=== PATIENT | female | born 1985 | race Caucasian/White ===

== ENCOUNTER 2019-12-22 17:26 | Emergency (ER) | payer BC, SELFPAY ==
--- NOTE | ~2019-12-22 | XR_ITS ---
EXAMINATION: XR chest 2V DATE: 12/22/2019 19:11 INDICATION: Left chest pressure. TECHNIQUE: Frontal and lateral views of the chest were obtained. COMPARISON: Chest 2 views 04/15/2013 FINDINGS: The chest demonstrates clear lungs without pneumonia, pleural effusion, or pneumothorax. Th e heart size is normal. IMPRESSION: 1. No acute cardiopulmonary disease. Reviewed, dictated and finalized at location A.
--- NOTE | 2019-12-22 17:44 | ECG_ITS ---
Measurements Intervals [place] Rate: 64 P: 54 CO: 140 QRS: 56 QRSD: 85 T: 23 QT: 343 QTc: 356 Interpretive Statements SINUS RHYTHM DELAYED PRECORDIAL R/S TRANSITION BORDERLINE ECG Electronically Signed On 12-22-2019 20:20:25 CDT by Malik Sands D.O.
[2019-12-22 17:45] VITALS: BP 132/73; PULSE 72; RESP 18; TEMP 36.9; O2SAT 100
[2019-12-22 17:56] LABS: Basophils Absolute Auto 0.1 K/mm3 (0.0-0.1); Basophils Percent Auto 0.9 % (0.2-1.2); Eosinophils Absolute Auto 0.4 K/mm3 (0-0.3); Eosinophils Percent Auto 5.7 % (0-4.4); Hematocrit 48.4 % (37.0-47.0); Hemoglobin 16.5 g/dL (12.0-15.0); Immature Granulocyte Absolute 0.04 K/mm3 (0.00-0.031); Immature Granulocyte Percent A 0.6 % (0-0.5); Lymphocytes Absolute Auto 2.19 K/mm3 (0.9-3.2); Lymphocytes Percent Auto 32.8 % (18.3-44.2); Mean Corpuscular HGB Conc 34.1 g/dl (32-36); Mean Corpuscular Hemoglobin 32.2 pg (26-34); Mean Corpuscular Volume 94.5 fl (80-100); Mean Platelet Volume 9.8 fl (7.4-10.4); Monocytes Absolute Auto 0.4 K/mm3 (0.1-0.6); Monocytes Percent Auto 5.8 % (2.6-8.5); Neutrophils Absolute Auto 3.6 K/mm3 (1.3-6.7); Neutrophils Percent Auto 54.2 % (45.5-73.1); Platelet Count Result 242 k/mm3 (150-375); Red Blood Count 5.12 M/mm3 (4.2-5.4); Red Cell Distribution Width 12.2 % (11.5-14.5); White Blood Count 6.7 K/mm3 (4.5-10.0)
[2019-12-22 18:06] LABS: Prothrombin Time 12.8 Seconds (11.1-14.7)
[2019-12-22 18:07] LABS: Partial Thromboplastin Time 27.9 SECONDS (22.3-36.8)
[2019-12-22 18:08] LABS: Blood Urea Nitrogen 15 mg/dL (7-17); Calcium 9.3 mg/dL (8.4-10.2); Carbon Dioxide 28 mmol/L (22-30); Chloride 102 mmol/L (98-107); Estimated CRCL calculation 70 ml/min; Estimated Glomerular Filt Rate > 60; Glucose 107 mg/dL (65-105); Sodium 137 mmol/L (137-145)
[2019-12-22 18:20] LABS: Troponin I < 0.012 ng/mL (0.000-0.034)
[2019-12-22 20:24] VITALS: BP 115/82; PULSE 64; RESP 18; O2SAT 99
--- NOTE | 2019-12-22 21:16 | ED.CHESTPAIN ---
HPI - Chest Pain General Chief Complaint: Chest Pain Stated Complaint: chest pain Time Seen by Provider: 12/22/19 20:59 Source: patient Mode of arrival: ambulatory Limitations: no limitations History of Present Illness HPI narrative: This patient is a 34 year old female transitioning to male on Testosterone who presents for evaluation of chest tightness. He states he developed chest tightness 2 days ago . This tightness has been constant and he also feels pain in his left shoulder. He has been taking ibuprofen and aspirin for his pain . He states the medication helped his pain but not his chest tightness. He denies nausea, vomiting, fever, cough, or sob. He denies history of blood clots. MD complaint: chest pain Pain radiation: left arm Pain scale (0-10): 5 Quality: tightness Relieving factors: nothing Exacerbating factors: nothing Related Data Home Medications Medication Instructions Recorded Confirmed amitriptyline 12/22/19 testosterone cypionate mg 12/22/19 12/22/19 Allergies Allergy/AdvReac Type Severity Reaction Status Date / Time No Known Allergies Allergy Verified 12/22/19 21:07 Review of Systems Review of Systems: All systems reviewed & are unremarkable except as noted in HPI and below Constitutional: Constitutional: Denies chills, Denies fever(s) and Denies weakness ENT: Denies dizziness, Denies nasal congestion and Denies sore throat Cardiovascular: Cardiovascular: Reports chest pain and Reports radiating jaw, neck or arm pain Respiratory: Respiratory: Denies cough, Denies dyspnea and Denies wheezing Gastrointestinal: Gastrointestinal: Reports abdominal pain, Denies diarrhea, Denies nausea and Denies vomiting Musculoskeletal: Musculoskeletal: Denies back pain Neurologic: Denies dizziness, Denies headache(s) and Denies weakness PMFSH Past Medical History Medical History (Updated 12/23/19 @ 00:00 by Background Daemon) [id number] transgender person Migraine headache Surgical History Surgical History (Updated 12/22/19 @ 21:16 by Kelle Mauro MD) H/O mastectomy Social History Social History (Updated 12/22/19 @ 21:17 by Kelle Mauro MD) Smoking status: Current every day smoker Alcohol intake: current Alcohol use details: occasional Substance use: never Exam Narrative: Exam Narrative: GENERAL: Well-appearing, well-nourished, and in no acute distress. HEAD: Normocephalic, atraumatic EYES: PERRLA and EOMI, conjunctiva clear without discharge THROAT:Mucous membranes moist, Oropharynx normal without erythema, exudate, peritonsillar swelling or fluctuance NECK: Supple, without lymphadenopathy or mass RESPIRATORY: No respiratory distress, Airway patent, Respirations non-labored, Clear to auscultation without rales, rhonchi or wheeze HEART: Regular rate and rhythm. No murmur heard. Normal peripheral pulses. left chest wall tenderness ABDOMEN: Soft, epigastric tenderness, nondistended, normal active bowel sounds. No masses. No rebound or guarding, No organomegaly. EXTREMITIES: No edema, normal strength with full range of motion. SKIN: Warm, dry, normal color without rash NEURO: Alert and oriented x3. CN 2-12 grossly intact. No focal deficits. PSYCH: Normal mood and affect. Course Reevaluation(s) Reevaluation #1: Patient reports her pain is resolving after GI cocktail. I have discussed unremarkable evaluation. We will start medication for GERD and he will follow up with PCP. Date: 12/22/19 Time: 22:32 Vital Signs Vital signs: Vital Signs Temperature 98.5 F 12/22/19 17:45 Pulse Rate 72 12/22/19 17:45 Respiratory Rate 18 12/22/19 17:45 Blood Pressure 132/73 12/22/19 17:45 Pulse Oximetry 100 12/22/19 17:45 Temperature 98.0 F 12/22/19 22:41 Pulse Rate 80 12/22/19 22:41 Respiratory Rate 20 12/22/19 22:41 Blood Pressure 128/70 12/22/19 22:41 Pulse Oximetry 99 12/22/19 22:41 MDM - Chest Pain Lab Data Attestati
[2019-12-22 21:38] LABS: Alanine Aminotransferase 18 U/L (4-35); Albumin Level 4.4 g/dL (3.5-5.1); Alkaline Phosphatase 45 U/L (38-126); Aspartate Amino Transferase 27 U/L (14-36); Bilirubin,Total 0.5 mg/dL (0.2-1.3); Lipase 37 U/L (23-300)
[2019-12-22 21:42] LABS: D Dimer 0.27 ug/mL (<0.48)
[2019-12-22] MEDS: BELLADONNA ALK/PHENOB ELIX 10 ML, MAG HYDROX/ALUMINUM HYD/SIMETH 30 ML, LIDOCAINE HCL 2... PO (21:47)
[2019-12-22 21:50] LABS: Troponin I < 0.012 ng/mL (0.000-0.034)
[2019-12-22 22:41] VITALS: BP 128/70; PULSE 80; RESP 20; TEMP 36.7; O2SAT 99
== END 2019-12-22 22:43 | disposition home or self-care (01) ==
PROVIDERS: Emergency Medicine; Emergency Provider General Practice
DX: R07.9 Chest pain, unspecified (principal)
CPT/HCPCS: 36415; 71046; 80048; 80076; 83690; 84484; 85025; 85380; 85610; 85730; 93005; 99284; A9270